=== PATIENT | female | born 2000 | race Caucasian/White ===

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

== ENCOUNTER 2019-09-19 18:11 | Emergency (ER) | payer OTHER ==
[~2019-09-19] VITALS: Ht 154 cm; Wt 71.0 kg
[~2019-09-19 18:11] MED LIST: METH18TA4 PO; METH54TA10; NORE-79
[2019-09-19 18:24] LABS: BILIRUBIN,URINE NEGATIVE (NEGATIVE); CLARITY,URINE CLEAR; COLOR,URINE YELLOW; GLUCOSE, URINE (UA) NEGATIVE (NEGATIVE); KETONES,URINE 1+ (NEGATIVE); LEUKOCYTE ESTERASE ,URINE TRACE (NEGATIVE); NITRITE,URINE NEGATIVE (NEGATIVE); PH,URINE 5.5 (5-9); PROTEIN,URINE NEGATIVE (NEGATIVE)
[2019-09-19 18:35] LABS: BACTERIA,URINE LARGE /HPF
[2019-09-19] MEDS ORDERED: LACTATED RINGERS 1,000 ML IV ONE ×2 (18:49→19:14)
--- NOTE | 2019-09-19 18:58 | ED Fever ---
History of Present Illness General Chief Complaint: Fever-Adult/Adol Stated Complaint: FEVER, ABD,BACK SIDE PAIN Nursing Triage Note: PT PRESENTS TO ED WITH COMPLAINTS OF R RIB CAGE PAIN THAT INCREASES WITH MOVEMENT AND INSPIRATION STARTING TUESDAY. PT ALSO DECREASE IN APPETITE X 2 DAYS AND FEVER. PT REPORTS HER URINE HAS BEEN DARK RECENTLY. PT REPORTS HER PAIN RADIATES DOWN HER R SIDE. Sepsis Screen: No Definite Risk Source: patient Exam Limitations: no limitations History of Present Illness Date Seen by Provider: Sep 19, 2019 Time Seen by Provider: 18:29 Initial Comments Patient presents to ER by private conveyance from family medicine clinic at [facility] chief complaint of pain in her right lateral lower ribs and right costovertebral angle intermittent since Tuesday, 5 days ago. She's also developed fever since Tuesday, 3 days ago. MAXIMUM TEMPERATURE is 103 today. She took Aleve on Tuesday and it made her pain and her fever better. She says the pain is worse with positioning or movement. Taking deep inspirations does make the pain a little worse. She's having no shortness of breath or cough that Tuesday when it was at its worst she said it did hurt a little bit to breathe but improved with the Aleve and pain control. She's had no cough no sick contacts and no travel. She's having no nausea. The pain does not seem to be related to eating. She has no history of abdominal surgeries. No history of sick contacts. Nobody else around her is been sick with nausea vomiting diarrhea. She had a bowel movement was normal, light brown today. She's had less frequent urination that she remarks is darker in color but not painful and has had no discharge. She went to the clinic today and they did a urine dip which did not show evidence for UTI and sent her here as the differential was wide enough to merit further, more detailed workup. The patient had no rash or itching associated with the pain. No history of hepatitis nor IV drug use. She does intermittently use marijuana but does not smoke cigarettes. She does take control and does not take the Cipro tablets so she does not have regular periods. No sore throat but she feels like she has pain in her right armpit along the right lateral border of her breast. She's not noticed any new lumps, bumps or deformities of the breast. No personal or familial history of significant medical disease including blood clots. Allergies and Home Medications Allergies Coded Allergies: No Known Drug Allergies (Unverified , 01/15/17) Home Medications Azithromycin 250 Mg Tablet, 250 MG PO DAILY Prescribed by: PRINCESS CARRERO on 09/19/192011 Cefdinir 300 Mg Capsule, 300 MG PO BID Prescribed by: PRINCESS CARRERO on 09/19/192011 Patient Home Medication List Home Medication List Reviewed: Yes Review of Systems Review of Systems Constitutional: chills; No dizziness; fever, malaise EENTM: No ear discharge, No ear pain Respiratory: No cough, No hemoptysis, No short of breath, No wheezing Cardiovascular: see HPI, chest pain; No edema, No Hx of Intervention, No palpitations Gastrointestinal: No abdominal pain, No melena, No nausea Genitourinary: see HPI, decreased output; No discharge, No dysuria : No (oral contraceptives without placebo for periods) Musculoskeletal: back pain (right middle back at the costovertebral margin); No joint pain, No joint swelling, No muscle pain, No muscle stiffness Psychiatric/Neurological: Denies Headache, Denies Numbness, Denies Paresthesia Hematologic/Lymphatic: Denies Anemia, Denies Blood Clots, Denies Easy Bleeding Past [id number]-[id number] Hx Patient Social History Alcohol Use: Occasionally Uses Recreational Drug Use: Yes Drug of Choice: marijuana Smoking Status: Never a Smoker Recent Foreign Travel: No Contact w/Someone Who Travel: No Recent Infectious Disease Expo: No Recent Hopitalizations: No Physical Abuse: No Sexual Abuse: No Mistreated: No Fear: No Past Medical History Surgeries: No Respiratory: No Cardiac: No Neurological: No Genitourinary: No Gastrointestinal: No Musculoskeletal: No Endocrine: No HEENT: No Cancer: No Integumentary: No Blood Disorders: No Physical Exam Vital Signs - First Documented 09/19/19 18:27 Temp 38.2 Pulse 126 Resp 20 B/P (MAP) 138/101 (113) Pulse Ox 96 Capillary Refill : Less Than 3 Seconds Height: 5'1.00" Weight: 120lbs. oz. [id number]; 29.00 BMI Method:Stated General Appearance: WD/WN, mild distress (rates her pain as a 3 out of 10 at rest) Eyes: Bilateral Eye Normal Inspection, Bilateral Eye PERRL, Bilateral Eye EOMI HEENT: PERRL/EOMI, normal ENT inspection, TMs normal; No pharynx normal (mild erythema in the retropharynx without exudate. Mildly dry oral mucosa.) Neck: full range of motion, normal inspection Respiratory: lungs clear, normal breath sounds, no respiratory distress, no accessory muscle use, other (right axilla and right lateral posterior ribs are mildly tender to palpation but do not re-create full level of her discomfort as opposed to deep inspiration) Cardiovascular: normal peripheral pulses, regular rate, rhythm, no edema, no JVD, tachycardia Gastrointestinal: normal bowel sounds, non tender, soft, hepatomegaly (liver edge percussed approximately 2.5 cm below the level of the rib cage, non-firm with negative Cruz's sign), other (negative for McBurney's point tenderness, psoas sign, Rovsing sign.) Extremities: normal range of motion, non-tender, normal inspection, no pedal edema, no calf tenderness, normal capillary refill Neurologic/Psychiatric: no motor/sensory deficits, alert, normal mood/affect, oriented x 3 Skin: normal color, warm/dry Focused Exam Lactate Level 09/19/19 19:17: Lactic Acid Level 0.67 Lactic Acid Level Laboratory Tests Test 09/19/19 19:17 Lactic Acid Level 0.67 MMOL/L (0.50-2.00) Progress/Results/Core Measures Suspected Sepsis Recent Fever Within 48 Hours: No Infection Criteria Present: None New/Unexplained Altered Menta: No Sepsis Screen: No Definite Risk SIRS Temperature: Pulse: 126 Respiratory Rate: 20 Laboratory Tests 09/19/19 18:55: White Blood Count 18.7H Blood Pressure 138 /101 Mean: 113 09/19/19 19:17: Lactic Acid Level 0.67 Laboratory Tests 09/19/19 18:55: Creatinine 0.79, INR Comment 1.0, Platelet Count 504H, Total Bilirubin 0.9 Results/Orders Lab Results Laboratory Tests Test 09/19/19 18:16 09/19/19 18:45 09/19/19 18:55 09/19/19 19:17 Range/Units Urine Color YELLOW Urine Clarity CLEAR Urine pH 5.5 5-9 Urine Specific [place] <=1.005 1.016-1.022 Urine Protein NEGATIVE NEGATIVE Urine Glucose (UA) NEGATIVE NEGATIVE Urine Ketones 1+ H NEGATIVE Urine Nitrite NEGATIVE NEGATIVE Urine Bilirubin NEGATIVE NEGATIVE Urine Urobilinogen 2.0 < = 1.0 MG/DL Urine Leukocyte Esterase TRACE H NEGATIVE Urine RBC (Auto) 2+ H NEGATIVE Urine RBC 5-10 H /HPF Urine WBC 2-5 /HPF Urine Squamous Epithelial Cells 10-25 H /HPF Urine Crystals NONE /LPF Urine Bacteria LARGE H /HPF Urine Casts NONE /LPF Urine Mucus NEGATIVE /LPF Urine Culture Indicated NO Group A Streptococcus Screen NEGATIVE NEGATIVE White Blood Count 18.7 H 4.3-11.0 10^3/uL Red Blood Count 4.30 L 4.35-5.85 10^6/uL Hemoglobin 12.1 11.5-16.0 G/DL Hematocrit 36 35-52 % Mean Corpuscular Volume 84 80-99 FL Mean Corpuscular Hemoglobin 28 25-34 PG Mean Corpuscular Hemoglobin Concent 34 32-36 G/DL Red Cell Distribution Width 12.5 10.0-14.5 % Platelet Count 504 H 130-400 10^3/uL Mean Platelet Volume 8.6 7.4-10.4 FL Neutrophils (%) (Auto) 80 H 42-75 % Lymphocytes (%) (Auto) 11 L 12-44 % Monocytes (%) (Auto) 9 0-12 % Eosinophils (%) (Auto) 0 0-10 % Basophils (%) (Auto) 0 0-10 % Neutrophils # (Auto) 15.0 H 1.8-7.8 X 10^3 Lymphocytes # (Auto) 2.0 1.0-4.0 X 10^3 Monocytes # (Auto) 1.6 H 0.0-1.0 X 10^3 Eosinophils # (Auto) 0.1 0.0-0.3 10^3/uL Basophils # (Auto) 0.0 0.0-0.1 10^3/uL Neutrophils % (Manual) 76 % Lymphocytes % (Manual) 14 % Monocytes % (Manual) 8 % Band Neutrophils 2 % Blood Morphology Comment NORMAL Erythrocyte Sedimentation Rate 1 0-20 MM/HR Prothrombin Time 14.0 12.2-14.7 SEC INR Comment 1.0 0.8-1.4 Activated Partial Thromboplast Time 29 24-35 SEC D-Dimer 2.49 H 0.00-0.49 UG/ML Sodium Level 133 L 135-145 MMOL/L Potassium Level 3.6 3.6-5.0 MMOL/L Chloride Level 98 98-107 MMOL/L Carbon Dioxide Level 19 L 21-32 MMOL/L Anion Gap 16 H 5-14 MMOL/L Blood Urea Nitrogen 7 7-18 MG/DL Creatinine 0.79 0.60-1.30 MG/DL Estimat Glomerular Filtration Rate > 60 BUN/Creatinine Ratio 9 Glucose Level 94 70-105 MG/DL Calcium Level 9.8 8.5-10.1 MG/DL Corrected Calcium 9.8 8.5-10.1 MG/DL Total Bilirubin 0.9 0.1-1.0 MG/DL Aspartate Amino Transf (AST/SGOT) 65 H 5-34 U/L Alanine Aminotransferase (ALT/SGPT) 99 H 0-55 U/L Alkaline Phosphatase 99 40-136 U/L Troponin I < 0.028 <0.028 NG/ML C-Reactive Protein High Sensitivity 22.55 H 0.00-0.50 MG/DL Total Protein 8.5 H 6.4-8.2 GM/DL Albumin 4.0 3.2-4.5 GM/DL Lipase 19 8-78 U/L Lactic Acid Level 0.67 0.50-2.00 MMOL/L Micro Results Microbiology 09/19/19 Influenza Types A,B Antigen (BELINDA) - Final, Complete My Orders Orders - PRINCESS CARRERO Chest Pa/Lat (2 View) (09/19/19 18:49) Ed Iv/Invasive Line Start (09/19/19 18:49) Lactated Ringers (Lr 1000 Ml Iv Solution (09/19/19 18:49) Ketorolac Injection (Toradol Injection) (09/19/19 19:00) Cbc With Automated Diff (09/19/19 18:49) Comprehensive Metabolic Panel (09/19/19 18:49) Hs C Reactive Protein (09/19/19 18:49) Erythrocyte Sedimentation Rate (09/19/19 18:49) Lipase (09/19/19 18:49) Rapid Strep A Screen (09/19/19 18:49) Fibrin Degradation Products (09/19/19 18:52) Manual Differential (09/19/19 18:55) Ekg Tracing (09/19/19 19:04) Troponin I (09/19/19 19:04) Ct Angio Chest W (09/19/19 19:11) Iohexol Injection (Omnipaque 350 Mg/Ml 1 (09/19/19 19:15) Received Contrast (Hold Metformin- Contr (09/19/19 19:15) Ns (Ivpb) (Sodium Chloride 0.9% Ivpb Bag (09/19/19 19:15) Blood Culture (09/19/19 19:14) Sputum Culture (09/19/19 19:14) Urine Culture (09/19/19 19:14) Ed Iv/Invasive Line Start (09/19/19 19:14) Vital Signs Adult Sepsis Patie Q15M (09/19/19 19:14) O2 (09/19/19 19:14) Remove Rings In Anticipation O (09/19/19 19:14) Lactic Acid Analyzer (09/19/19 19:14) Influenza A And B Antigens (09/19/19 19:14) Lactated Ringers (Lr 1000 Ml Iv Solution (09/19/19 19:14) Ceftriaxone For Iv Use (Rocephin For I (09/19/19 19:15) Azithromycin Injection (Zithromax Inject (09/19/19 19:15) Acetaminophen Tablet (Tylenol Tablet) (09/19/19 19:15) Partial Thromboplastin Time (09/19/19 18:55) Protime With Inr (09/19/19 18:55) Medications Given in ED Current Medications Medications Dose Ordered Sig/Kelley Route Start Time Stop Time Status Last Admin Dose Admin Acetaminophen 1,000 mg ONCE ONCE PO 09/19/19 19:15 09/19/19 19:17 DC 09/19/19 19:25 1,000 MG Azithromycin 500 mg/Sodium Chloride 250 ml @ 250 mls/hr ONCE ONCE IV 09/19/19 19:15 09/19/19 20:14 DC 09/19/19 19:57 250 MLS/HR Ceftriaxone Sodium 1000 mg/ Sterile Water 10 ml @ 200 mls/hr ONCE ONCE IV 09/19/19 19:15 09/19/19 19:17 DC 09/19/19 19:55 200 MLS/HR Iohexol 75 ml ONCE ONCE IV 09/19/19 19:15 09/19/19 19:33 DC 09/19/19 19:39 75 ML Ketorolac Tromethamine 30 mg ONCE ONCE IVP 09/19/19 19:00 09/19/19 19:01 DC 09/19/19 19:15 30 MG Lactated Ringer's 1,000 ml @ 0 mls/hr Q0M ONCE IV 09/19/19 18:49 09/19/19 18:52 DC 09/19/19 19:15 0 MLS/HR Lactated Ringer's 1,000 ml @ 0 mls/hr Q0M ONCE IV 09/19/19 19:14 09/19/19 19:17 DC 09/19/19 20:44 0 MLS/HR Sodium Chloride 100 ml ONCE ONCE IV 09/19/19 19:15 09/19/19 19:33 DC 09/19/19 19:39 100 ML Vital Signs/I&O 09/19/19 09/19/19 18:27 19:25 Temp 38.2 38.2 Pulse 126 Resp 20 B/P (MAP) 138/101 (113) Pulse Ox 96 Capillary Refill : Less Than 3 Seconds Blood Pressure Mean: 113 Progress Note #1: Time: 18:58 Progress Note Most her pain seems to be in her right axilla and lateral posterior ribs worsening on deep inspiration or movement. Pleurisy comes to mind. Possibility the pain could be coming from below the diaphragm as well. She does have a marginally enlarged liver by couple centimeters on physical examination so hepatitis, cholecystitis, appendicitis are all possibilities as well as the usual culprits for . Because she is on control and occasionally smokes the possibility of a pulmonary embolism is there although she has no evidence of a DVT but she is tachycardic with a heart rate in the 1:15 to 125 range without evidence of hypoxia on room air. We will get a d-dimer and isn't able to rule it out and we will obtain CT with angiography of the chest which will also allow us to examine the least portion of the liver. We will get a 2 view chest x-ray. We'll get a lipase and labs including CRP/ESR. If we do not find evidence of above the diaphragm disease and we will get a CT of the abdomen and pelvis with IV contrast to rule out appendicitis, cholecystitis, hepatitis etc. There is a small amount of red blood cells in her urine as well as some squames so could be some breakthrough bleeding versus hemolytic uremic syndrome? The patient Doesn't have any evidence of recent strep but she does have a high fever so we will just do a rapid strep test. 1 L of lactated Ringer's and Toradol for discomfort. Well score: 1.5 points; Low risk group: 1.3% chance of PE in an ED population. PERC Rule 2 criteria; If any criteria are positive, the PERC rule cannot be used to rule out PE in this patient. Intermediate suspicion. D-dimer has been ordered. Less likely a referred pain to her right chest from a myocarditis or peric arditis. Plan to get an EKG and troponin as well. Progress Note #2: Time: 19:17 Progress Note Chest x-ray shows a right lower lobe infiltrate which would be consistent with a pneumonia which would be consistent with her pleuritic chest pain. She is up-to-date on her vaccinations and it seems unusual to see [id number] with a lobar pneumonia like this is ready go ahead and pursue the CT angiogram just to rule out any mass or pulmonary embolism associated with this radiologic feature seen on 2 view chest x-ray. Progress Note #3: Time: 20:07 Progress Note We did discuss the patient's illness and sepsis and offered the patient a chance to stay in the hospital. The patient was quick to decline this offer. She looks well has normal oxygen sats in her heart rate is down to 105 in all of her flui ds or not completed. She still needs to get her azithromycin. We have offered to do an outpatient trial of antibiotics as the patient has not had appropriate outpatient care yet and I agree with her plan to go home. She says her mom is staying in town and will be looking after her. We have given her good return precautions and answered all of her questions. No evidence of other tumor or other disease was found. Plan to put her on Omnicef and azithromycin. We'll also encourage her to follow-up early next week with either the primary care office for the clinic she's been following through [employer] or other local physician. Progress Note #4: Time: 21:51 Progress Note The patient's heart rates in the 90s and she is afebrile. Aseptic vital signs. Plan to allow her to go home. She is in agreement with this. ECG Initial ECG Impression Date: Sep 19, 2019 Initial ECG Impression Time: 19:19 Initial ECG Rate: 105 Initial ECG Rhythm: S.Tach Initial ECG Intervals: Normal Initial ECG Impression: Normal Initial ECG Comparisson: No Previous ECG Available Comment Normal sinus tachycardia without evidence of irritation, dysrhythmia, elevation or depression in the ST segments. Diagnostic Imaging Diagonstic Imaging: Xray Plain Films/CT/US/NM/MRI: chest (2 view) Comments Right middle lobe infiltrate. NAME: RAÚL GARRISON [facility] REC#: [id number] PT STATUS: REG ER : 2000 PHYSICIAN: PRINCESS CARRERO MD ADMIT DATE: 09/19/19/ER Draft Date of Exam:09/19/19 CHEST PA/LAT (2 VIEW) INDICATION: Fever. Chest pain. COMPARISON: None FINDINGS: Frontal and lateral radiographic views of the chest were obtained and show consolidative airspace disease of the lateral margin of the right middle lobe. There is mild asymmetric hypoinflation of the right lung as well. Left lung is clear and well aerated. There is no large effusion or pneumothorax on either side. Cardiac silhouette and pulmonary vasculature within normal limits. Osseous structures show no gross acute abnormalities. IMPRESSION: 1. Right middle lobe pneumonia. Follow-up to resolution is advised. Dictated on workstation # [id number] Dict: 09/19/191924 Trans: 09/19/191931 [facility] [id number] Interpreted by: TERRY UMANZOR MD Electronically signed by: Reviewed: Reviewed by Ia Diagonstic Imaging: CT (angiogram) Plain Films/CT/US/NM/MRI: chest Comments [facility] [place] NAME: RAÚL GARRISON [facility] REC#: [id number] PT STATUS: REG ER : 2000 PHYSICIAN: PRINCESS CARRERO MD ADMIT DATE: 09/19/19/ER Draft Date of Exam:09/19/19 CT ANGIO CHEST W PROCEDURE: CT angiography of the chest with contrast. TECHNIQUE: Multiple contiguous axial images were obtained through the chest after uneventful bolus administration of intravenous contrast. 3D reconstructed CTA MIP acquisitions were also performed. Auto Exposure Controls were utilized during the CT exam to meet ALARA standards for radiation dose reduction. INDICATION: Fever. Right-sided chest pain and tenderness. COMPARISON: None FINDINGS: There is no acute embolus to the 1st subsegmental division of the pulmonary arteries. Heart size is within normal limits. There is no large pericardial effusion. Several mildly prominent right perihilar lymph nodes are identified. Reference lymph node measures 1.9 x 1.6 cm. No abnormal mediastinal, left hilar, nor bilateral axillary adenopathy is seen. Evaluation of the lung andrew is mildly degraded secondary to motion artifact. There is, however, moderate sized area of dense consolidation involving the lateral segment of the right middle lobe. This corresponds to findings seen on chest radiograph from earlier same day. Few patchy alveolar infiltrates are also noted within the right lower lobe. Additionally, there is trace effusion on the right. Left lung is relatively clear. There is no large effusion on the left. No pneumothorax is seen on either side. Osseous structures show no acute abnormalities. No lytic or blastic bony lesions are seen. Included portions of the upper abdomen are unremarkable. IMPRESSION: 1. No acute pulmonary embolus. 2. Right middle and lower lobe infiltrates. 3. Small right effusion. 4. Mildly prominent right hilar adenopathy; likely reactive. Dictated on workstation # [id number] Dict: 09/19/191942 Trans: 09/19/191948 [facility] [phone] Interpreted by: TERRY UMANZOR MD Electronically signed by: Reviewed: Reviewed by Me Departure Impression Primary Impression: Right middle lobe pneumonia Qualified Codes: J18.1 - Lobar pneumonia, unspecified organism Additional Impressions: Sepsis Qualified Codes: A41.9 - Sepsis, unspecified organism Pleurisy with effusion, with bacterial cause Disposition: 01 HOME, SELF-CARE Condition: Improved Departure-Patient Inst. Decision time for Depature: 20:10 Referrals: [facility] (PCP) Primary Care Physician Patient Instructions: Pleuritic Chest Pain, Pneumonia, Adult (DC) Add. Discharge Instructions: Tomorrow please call this [facility] and request follow-up appointment Tuesday with Dr. Patton. Return to the ER promptly if you begin to experience intractable pain, shortness of breath or other worrisome symptoms. 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 Azithromycin 1 tablet daily for the next 4 days. Omnicef one capsule twice a day for the next 2 weeks. Drink lots of fluids and get plenty of rest. Stay active around the house however. Tylenol/acetaminophen 1000 mg every 8 hours as needed for chest pain or fever. Aleve/naproxen 2 tablets twice daily as needed for chest pain or fever. Alternatively you may use ibuprofen/Motrin 800 mg every 8 hours as needed for chest pain or fever. All discharge instructions reviewed with patient and/or family. Voiced understanding. Scripts Azithromycin (Azithromycin) 250 Mg Tablet 250 MG PO DAILY, #4 TAB 0 Refills Prov: PRINCESS CARRERO 09/19/19 Cefdinir (Cefdinir) 300 Mg Capsule 300 MG PO BID for 14 Days, #28 CAP 0 Refills Prov: PRINCESS CARRERO 09/19/19 Work/School Note: Work Release Form Date Seen in the Emergency Department: Sep 19, 2019 Return to Work: September 25, 2019 Restrictions: No Restrictions Copy Copies To 1: PURA PATTON MD, TITUS J Sep 19, 2019 18:58
[2019-09-19] MEDS ORDERED: KETOROLAC 30 MG/ML VIAL IVP ONE (19:00)
[2019-09-19 19:03] LABS: BASOPHILS % (AUTO) 0 % (0-10); EOSINOPHILS # (AUTO) 0.1 10^3/uL (0.0-0.3); EOSINOPHILS % (AUTO) 0 % (0-10); HEMATOCRIT 36 % (35-52); HEMOGLOBIN 12.1 G/DL (11.5-16.0); LYMPHOCYTES % (AUTO) 11 % (12-44); MEAN CORPUSCULAR HEMOGLOBIN 28 PG (25-34); MEAN CORPUSCULAR HGB CONC 34 G/DL (32-36); MEAN CORPUSCULAR VOLUME 84 FL (80-99); MEAN PLATELET VOLUME 8.6 FL (7.4-10.4); MONOCYTES # (AUTO) 1.6 X 10^3 (0.0-1.0); MONOCYTES % (AUTO) 9 % (0-12); NEUTROPHILS % (AUTO) 80 % (42-75); PLATELET COUNT 504 10^3/uL (130-400); RED CELL DISTRIBUTION WIDTH 12.5 % (10.0-14.5); WHITE BLOOD COUNT 18.7 10^3/uL (4.3-11.0)
[2019-09-19] MEDS ORDERED: cefTRIAXone FOR IV USE 1,000 MG in WATER (STERILE) FOR INJECTION 10 ML IV ONE (19:15)
[2019-09-19] MEDS ORDERED: HOLD METFORMIN - RECEIVED CONTRAST 20 ML VIAL IV SCH (19:15)
[2019-09-19] MEDS ORDERED: IOHEXOL 350 MG/ML 100 ML (OMNIPAQUE 350) VIAL IV ONE (19:15)
[2019-09-19] MEDS ORDERED: NS 100 ML (IVPB) BAG IV ONE (19:15)
[2019-09-19] MEDS ORDERED: ACETAMINOPHEN 500 MG TAB (TYLENOL) PO ONE (19:15)
[2019-09-19] MEDS ORDERED: AZITHROMYCIN INJECTION 500 MG in NS (IVPB) 250 ML IV ONE (19:15)
[2019-09-19 19:28] LABS: ALANINE AMINOTRANSFERASE 99 U/L (0-55); ALKALINE PHOSPHATASE 99 U/L (40-136); BILIRUBIN,TOTAL 0.9 MG/DL (0.1-1.0); BUN/CREATININE RATIO 9; CALCIUM 9.8 MG/DL (8.5-10.1); CARBON DIOXIDE 19 MMOL/L (21-32); CHLORIDE 98 MMOL/L (98-107); CREATININE SERUM 0.79 MG/DL (0.60-1.30); GFR ESTIMATED > 60; GLUCOSE 94 MG/DL (70-105); LIPASE 19 U/L (8-78); POTASSIUM 3.6 MMOL/L (3.6-5.0); SODIUM 133 MMOL/L (135-145); TOTAL PROTEIN 8.5 GM/DL (6.4-8.2)
--- NOTE | 2019-09-19 19:32 | Diagnostic Imaging Report ---
INDICATION: Fever. Chest pain. COMPARISON: None FINDINGS: Frontal and lateral radiographic views of the chest were obtained and show consolidative airspace disease of the lateral margin of the right middle lobe. There is mild asymmetric hypoinflation of the right lung as well. Left lung is clear and well aerated. There is no large effusion or pneumothorax on either side. Cardiac silhouette and pulmonary vasculature within normal limits. Osseous structures show no gross acute abnormalities. IMPRESSION: 1. Right middle lobe pneumonia. Follow-up to resolution is advised. Dictated by: Dictated on workstation # [id number]
[2019-09-19 19:42] LABS: FIBRIN DEGRADATION PRODUCTS 2.49 UG/ML (0.00-0.49)
--- NOTE | 2019-09-19 19:51 | Diagnostic Imaging Report ---
PROCEDURE: CT angiography of the chest with contrast. TECHNIQUE: Multiple contiguous axial images were obtained through the chest after uneventful bolus administration of intravenous contrast. 3D reconstructed CTA MIP acquisitions were also performed. Auto Exposure Controls were utilized during the CT exam to meet ALARA standards for radiation dose reduction. INDICATION: Fever. Right-sided chest pain and tenderness. COMPARISON: None FINDINGS: There is no acute embolus to the 1st subsegmental division of the pulmonary arteries. Heart size is within normal limits. There is no large pericardial effusion. Several mildly prominent right perihilar lymph nodes are identified. Reference lymph node measures 1.9 x 1.6 cm. No abnormal mediastinal, left hilar, nor bilateral axillary adenopathy is seen. Evaluation of the lung andrew is mildly degraded secondary to motion artifact. There is, however, moderate sized area of dense consolidation involving the lateral segment of the right middle lobe. This corresponds to findings seen on chest radiograph from earlier same day. Few patchy alveolar infiltrates are also noted within the right lower lobe. Additionally, there is trace effusion on the right. Left lung is relatively clear. There is no large effusion on the left. No pneumothorax is seen on either side. Osseous structures show no acute abnormalities. No lytic or blastic bony lesions are seen. Included portions of the upper abdomen are unremarkable. IMPRESSION: 1. No acute pulmonary embolus. 2. Right middle and lower lobe infiltrates. 3. Small right effusion. 4. Mildly prominent right hilar adenopathy; likely reactive. Dictated by: Dictated on workstation # [id number]
--- OUTSIDE RECORDS SUMMARY | 2019-09-19 20:08 | XMS REPORT | Clinical Summary ---
Author Author [facility] Organization [facility] Address [address] [address] Phone Care Team Providers Care Green Prize Packer Name Role Phone EMILY LUNDBERG, JOHN PCP Conditions or Problems Problem Name Problem Code Onset Date Status Entry Date Provider Comment Standard Description Annotate WARTS 260095936 (SNOMED CT) Inactive JOHN GRIMES MD Human papilloma virus infection WELL CHILD EXAMINATION 656018337 (SNOMED CT) Active 20 02/21/03 JOHN DIAZ MD Well child visit WARTS 932670878 (SNOMED CT) Inactive JOHN GRIMES MD Human papilloma virus infection ATTENTION DEFICIT DISORDER WITH HYPERACTIVITY 314.01 (ICD-9-CM) Active JOELLE FOLEY LPN 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 GENERIC IS OK. May use brand name Concerta if preferential on insurance formulary. METHYLPHENIDATE HCL 40906600052 JOHN VILLEGAS MD CONCERTA 27 MG CR-TABS Take 1 tablet in the morning for . GENERIC IS OK. May use brand name Concerta if preferential on insurance formulary. METHYLPHENIDATE HCL 20479716731 JOHN VILLEGAS MD CONCERTA 36 MG CR-TABS Take 1 tablet in the morning for . GENERIC IS OK. May use brand name Concerta if preferential on insurance formulary. DO NOT FILL BEFORE METHYLPHENIDATE HCL [id number] JOHN DIAZ MD CONCERTA 36 MG CR-TABS Take 1 tablet in the morning for . GENERIC IS OK. May use brand name Concerta if preferential on insurance formulary. DO NOT FILL BEFORE METHYLPHENIDAT E HCL [id number] JOHN DIAZ MD CONCERTA 36 MG CR-TABS Take 1 tablet in the morning for . GENERIC IS OK. May use brand name Concerta if preferential on insurance formulary. METHYLPHENIDATE HCL 13913166244 JOHN VILLEGAS MD CONCERTA 36 MG CR-TABS Take 1 tablet in the morning for . GENERIC IS OK. May use brand name Concerta if preferential on insurance formulary. DO NOT FILL BEFORE METHYLPHENIDATE HCL 5 [id number] JOHN DIAZ MD CONCERTA 36 MG CR-TABS Take 1 tablet in the morning for . GENERIC IS OK. May use brand name Concerta if preferential on insurance formulary. DO NOT FILL BEFORE METHYLPHENIDATE HCL [id number] JOHN DIAZ MD CONCERTA 36 MG CR-TABS Take 1 tablet in the morning for . GENERIC IS OK. May use brand name Concerta if preferential on insurance formulary. Do Not Fill Before METHYLPHENIDATE HCL [id number] JOHN DIAZ MD CONCERTA 36 MG CR-TABS Take 1 tablet in the morning for . GENERIC IS OK. May use brand name Concerta if preferential on insurance formulary. Do Not Fill Before METHYLPHENIDATE HCL 5 [id number] JOHN DIAZ MD CONCERTA 18 MG CR-TABS Take 2 tablets in the mornin g for . GENERIC IS OK. May use brand name Concerta if preferential on insurance formulary. METHYLPHENIDATE HCL [id number] JOHN VILLEGAS MD CONCERTA 36 MG CR-TABS Take 1 tablet in the morning for . GENERIC IS OK. May use brand name Concerta if preferential on insurance formulary. METHYLPHENIDATE HCL [id number] JOHN VILLEGAS MD CONCERTA 18 MG CR-TABS Take 2 tablets in the mornin g for . GENERIC IS OK. May use brand name Concerta if preferential on insurance formulary. METHYLPHENIDATE HCL [id number] JOHN VILLEGAS MD CONCERTA 36 MG CR-TABS Take 1 tablet in the morning for . GENERIC IS OK. May use brand name Concerta if preferential on insurance formulary. Do not fill before METHYLPHENIDATE HCL [id number] JOHN MONTES MD CONCERTA 36 MG CR-TABS Take 1 tablet in the morning for . GENERIC IS OK. May use brand name Concerta if preferential on insurance formulary. Do not fill before METHYLPHENIDATE HCL [id number] JOHN MONTES MD CONCERTA 36 MG CR-TABS Take 1 tablet in the morning for . GENERIC IS OK. May use brand name Concerta if preferential on insurance formulary. METHYLPHENIDATE HCL [id number] JOHN VILLEGAS MD CONCERTA 36 MG CR-TABS Take 1 tablet in the morning for Do not fill before 05/18/10 METHYLPHENIDATE HCL [id number] JOHN DIAZ MD CONCERTA 36 MG CR-TABS Take 1 tablet in the morning for _ METHYLPHENIDATE HCL [id number] JOHN DIAZ MD CONCERTA 36 MG CR-TABS Take 1 tablet in the morning for Do not fill before 06/18/10 METHYLPHENIDATE HCL [id number] Ryan Larson PA-C CONCERTA 36 MG CR-TABS Take 1 tablet in the morning for Do not fill before 05/18/10 METHYLPHENIDATE HCL [id number] JOHN DIAZ MD CONCERTA 54 MG CR-TABS Do NOT fill before October 27 010 Take 1 tablet in the morning for METHYLPHENIDATE HCL [id number] Cheyenne Steven RN CONCERTA 36 MG CR-TABS Take 1 tablet in the morning for Do not fill before 03-18-10 METHYLPHENIDATE HCL [id number] JOHN DIAZ MD CONCERTA 36 MG CR-TABS Take 1 tablet in the morning for Do not fill before 02-16-10 METHYLPHENIDATE HCL [id number] JOHN DIAZ MD CONCERTA 36 MG CR-TABS Take 1 tablet in the morning for _ METHYLPHENIDATE HCL [id number] JOHN DIAZ MD CONCERTA 54 MG CR-TABS Do NOT fill before September 26 10 Take 1 tablet in the morning for METHYLPHENIDATE HCL [id number] JOHN DIAZ MD CONCERTA 54 MG CR-TABS Take 1 tablet qAM for METHYLPHENIDATE HCL [id number] JOHN DIAZ MD PEDIOTIC 3.5-72005-3 SUSP Instill 2 to 4 drops in affected e ar qid for 5 days. [id number] Tatiana Chaudhary RN CONCERTA 54 MG CR-TABS Do NOT fill before October 27 010 Take 1 tablet in the morning for METHYLPHENIDATE HCL [id number] JOHN DIAZ MD CONCERTA 54 MG CR-TABS Do NOT fill before September 26 10 Take 1 tablet in the morning for METHYLPHENIDATE HCL [id number] JOHN DIAZ MD CONCERTA 54 MG CR-TABS Take 1 tablet in the morning for _ METHYLPHENIDATE HCL [id number] JOHN DIAZ MD CONCERTA 54 MG CR-TABS Take 1 tablet in the morning for _ METHYLPHENIDATE HCL [id number] JOHN DIAZ MD CONCERTA 54 MG CR-TABS Take 1 tablet qAM for METHYLPHENIDATE HCL [id number] JOHN DIAZ MD CONCERTA 54 MG CR-TABS Take 1 tablet qAM for METHYLPHENIDATE HCL [id number] JOHN DIAZ MD CONCERTA 54 MG CR-TABS Take 1 tablet qAM for METHYLPHENIDATE HCL [id number] VANESSA CHINCHILLA MD AEROCHAMBER Z-STAT PLUS/MEDIUM use with inhaler 06/24 RESPIRATORY THERAPY SUPPLIES [id number] DARON ALVAREZ MD PROVENTIL HFA AERS Use 2 puffs q 4 hr prn ALBUTEROL SULFATE AERS [id number] DARON ALVAREZ MD PEDIOTIC 3.5-36676-4 SUSP Instill 2 to 4 drops in affected e ar qid for 5 days. ARXKOIQS-[id number]-YG [id number] DARON GIRALDO MD ZITHROMAX Z-MARYCHUY 250 MG TABS Take TWO tablets first day , then ONE tablet daily for 4 days. AZITHROMYCIN [id number] DARON ALVAREZ MD XOPENEX 0.63 MG/3ML NEBU Use 1 vial TID with pulmoaide LEVALBUTEROL HCL [id number] BENY HARRIS MD ZITHROMAX 200 MG/5ML SUSR Take 2 tsp po day 1, 1 tsp.po day 2-5 AZITHROMYCIN [id number] BENY HARRIS MD Medications Administered No information available. Allergies, Adverse Reactions, Alerts Observed no known allergies at Results No information available. Plan of Care Type Date Detail Pending order TdaP Pending order Administration INITI AL Vaccine Pending order Varivax Pending order Administration INITI AL Vaccine Pending order Varivax Pending order Administration INITI AL Vaccine Procedures Code Procedure Name Date Entry Date CPT-58045 Warts Destruction up to 14 06/25 CPT-12916 TdaP CPT-61148 Administration INITIAL Vaccine 2 CPT-93116 Warts Destruction up to 14 11/11 CPT-87432 Administration INITIAL Vaccine 2 CPT-35342 Varivax CPT-03805 Varivax CPT-64557 Administration INITIAL Vaccine 2 Vital Signs Date Name Value Unit Description BMI (Body Mass Index) 21.89 kg/m2 Body M ass Index [Ratio] BP Diastolic 70 mm[Hg] blood pressure, diastolic BP Systolic 124 mm[Hg] blood pressure, systolic Height 59 [in_us] height E&M Height 149.86 cm height in centi meters E&M Weight Measured 108 [lb_av] weight E&M Weight Measured 49.09 kg weight in ki lograms E&M Heart Rate 88 /min pulse rate E&M
--- OUTSIDE RECORDS SUMMARY | 2019-09-19 20:09 | XMS REPORT | Continuity of Care Document ---
Author Organization Unknown Address Unknown Phone Unavailable Allergies Active Description Code Type Severity Reaction Onset Reported/Identified Relationship to Patient Clinical Status Yes NKA Drug N/A N/A Yes No Known Drug Allergies [id number] Drug Allergy Unknown N/A 01/15/2017 Medications Medication Packaging Start Date St op Date Route Dosage Sig cephalexin 04/1104/21/2018 PO 500 mg / 1 cap Problems Date Dx Coded Attending Type Code Diagnosis Diagnosed By 01/15/2017 GABBIE JEWELL APRN Ot M25.572 PAIN IN LEFT ANKLE AND JOINTS OF LEFT FO 01/15/2017 GABBIE JEWELL APRN Ot S93.402A SPRAIN OF UNSPECIFIED LIGAMENT OF LEFT A 01/15/2017 GABBIE JEWELL APRN Ot X50.1XXA OVEREXERTION FROM PROLONGED STATIC OR AW 01/17/2017 GABBIE JEWELL APRN Ot M25.572 PAIN IN LEFT ANKLE AND JOINTS OF LEFT FO 01/17/2017 GABBIE JEWELL APRN Ot S93.402A SPRAIN OF UNSPECIFIED LIGAMENT OF LEFT A 01/17/2017 GABBIE JEWELL APRN Ot X50.1XXA OVEREXERTION FROM PROLONGED STATIC OR AW 04/12/2018 Nilson Aiken Admitting M79.642 Pain in left hand 04/12/2018 Nilson Aiken Final S61.412 A Laceration without foreign body of left hand, initial encoun 04/12/2018 Nilson Aiken Final W22.8XX A Striking against or struck by other objects, initial encount 04/12/2018 Nilson Aiken Final W25.XXX A Contact with sharp glass, initial encounter 04/12/2018 Nilson Aiken Final Y92.[address] in unspecified non-institutional (private) Procedures Code Description [place] [address] [facility] FABIAN FELDER 04/11/2018 [address] Located within [facility] department visit for the evalu FABIAN FELDER 04/11/2018 Results Test Result Range Complete urinalysis with reflex to cultu re - 09/19/19 18:16 Urine color determination YELLOW NRG Urine clarity determination CLEAR NR G Urine pH measurement by test strip 5.5 5-9 Specific gravity of urine by test strip <= 1.016-1.022 Urine protein assay by test strip, semi-quantitative NEGATIVE NEGATIVE Urine glucose detection by automated test strip NE GATIVE NEGATIVE Erythrocytes detection in urine sediment by light micr oscopy 2+ NEGATIVE Urine ketones detection by automated test strip 1+ NEGATIVE Urine nitrite detection by test strip NEGATIVE NEGATIVE Urine total bilirubin detection by test strip NEGA TIVE NEGATIVE Urine urobilinogen measurement by automated test strip (mass/volume) 2.0 mg/dL < = 1.0 Urine leukocyte esterase detection by dipstick TRA CE NEGATIVE Automated urine sediment erythrocyte cou nt by microscopy (number/high power field) [HPF] NRG Automated urine sediment leukocyte count by microscopy (number/high power field) [HPF] NRG Bacteria detection in urine sediment by light microsco py LARGE NRG Squamous epithelial cells detection in u rine sediment by light microscopy 10-25 NRG Crystals detection in urine sediment by light microsco py NONE NRG Casts detection in urine sediment by light microscopy NONE NRG Mucus detection in urine sediment by light microscopy NEGATIVE NRG Complete urinalysis with reflex to culture NO NRG Streptococcus pyogenes antigen detection - 09/19/19 18:45 Streptococcus pyogenes antigen detection NEGATIVE NEGATIVE Complete blood count (CBC) with automate d white blood cell (WBC) differential - 09/19/19 18:55 Blood leukocytes automated count (number/volume) 18.7 10*3/uL 4.3-11.0 Blood erythrocytes automated count (number/volume) 4.30 10*6/uL 4.35-5.85 Venous blood hemoglobin measurement (mass/volume) 12.1 g/dL 11.5-16.0 Blood hematocrit (volume fraction) 36 % 35-52 Automated erythrocyte mean corpuscular volume 84 [ foz_us] 80-99 Automated erythrocyte mean corpuscular h emoglobin (mass per erythrocyte) 28 pg 25-34 Automated erythrocyte mean corpuscular h emoglobin concentration measurement (mass/volume) 34 g/dL 32-36 Automated erythrocyte distribution width ratio 12. 5 % 10.0- 14.5 Automated blood platelet count (count/volume) 504 10*3/uL 130-400 Automated blood platelet mean volume measurement 8.6 [foz_us] 7.4-10.4 Automated blood neutrophils/100 leukocytes 80 % 42-75 Automated blood lymphocytes/100 leukocytes 11 % 12-44 Blood monocytes/100 leukocytes 9 % 0-12 Automated blood eosinophils/100 leukocytes 0 % 0-10 Automated blood basophils/100 leukocytes 0 % 0-10 Blood neutrophils automated count (number/volume) 15.0 10*3 1.8-7.8 Blood lymphocytes automated count (number/volume) 2.0 10*3 1.0-4.0 Blood monocytes automated count (number/volume) 1. 6 10*3 0.0-1.0 Automated eosinophil count 0.1 10*3/uL 0 .0-0.3 Automated blood basophil count (count/volume) 0.0 10*3/uL 0.0-0.1 Comprehensive metabolic panel - 09/19/19 18:55 Serum or plasma sodium measurement (moles/volume) 133 mmol/L 135-145 Serum or plasma potassium measurement (moles/volume) 3.6 mmol/L 3.6-5.0 Serum or plasma chloride measurement (moles/volume) 98 mmol/L 98-107 Carbon dioxide 19 mmol/L 21-32 Serum or plasma anion gap determination (moles/volume) 16 mmol/L 5-14 Serum or plasma urea nitrogen measurement (mass/volume ) 7 mg/dL 7-18 Serum or plasma creatinine measurement (mass/volume) 0.79 mg/dL 0.60-1.30 Serum or plasma urea nitrogen/creatinine mass ratio 9 NRG Serum or plasma creatinine measurement w ith calculation of estimated glomerular filtration rate > NRG Serum or plasma glucose measurement (mass/volume) 94 mg/dL 70-105 Serum or plasma calcium measurement (mass/volume) 9.8 mg/dL 8.5-10.1 Serum or plasma total bilirubin measurement (mass/volu me) 0.9 mg/dL 0.1-1.0 Serum or plasma alkaline phosphatase ugo surement (enzymatic activity/volume) 99 U/L 40-136 Serum or plasma aspartate aminotransfera se measurement (enzymatic activity/volume) 65 U/L 5-34 Serum or plasma alanine aminotransferase measurement (enzymatic activity/volume) 99 U/L 0-55 Serum or plasma protein measurement (mass/volume) 8.5 g/dL 6.4-8.2 Serum or plasma albumin measurement (mass/volume) 4.0 g/dL 3.2-4.5 CALCIUM CORRECTED 9.8 mg/dL 8.5-10.1 Lipase - 09/19/19 18:55 Lipase 19 U/L 8-78 Serum or plasma troponin i.cardiac measu rement (mass/volume) - 09/19/19 18:55 Serum or plasma troponin i.cardiac measurement (mass/v olume) < ng/mL <0.028 Serum or plasma C reactive protein measu rement (mass/volume) - 09/19/19 18:55 Serum or plasma C reactive protein measurement (mass/v olume) 22.55 mg/dL 0.00-0.50 Encounters ACCT No. Visit Date/Time Discharge Status Pt. Type Provider Facility Loc./Unit Complaint [id number] 04/11/2018 21:34:00 8 00:32:00 DIS Emergency Nilson Aiken [facility] ER Foreign Body [id number] 01/15/2017 13:55:00 017 15:10:00 DIS Emergency GABBIE JEWELL APRN [facility] ER L ANKLE PAIN [id number] 09/19/2019 18:12:[address] Emergency MAGAN LUNDBERG, PRINCESS Alberto [facility] ER FEVER, ABD,BACK SIDE PAIN
[2019-09-19] MEDS ORDERED: AZIT250T12 PO ×2 (20:12→21:51)
[2019-09-19] MEDS ORDERED: CEFD300C3 PO ×2 (20:12→21:51)
[2019-09-19 20:26] LABS: BAND NEUTROPHILS 2 %; LYMPHOCYTES % (MANUAL) 14 %; MONOCYTES % (MANUAL) 8 %; NEUTROPHILS % (MANUAL) 76 %
[2019-09-19 20:27] LABS: ERYTHROCYTE SEDIMENTATION RATE 1 MM/HR (0-20); RBC MORPH NORMAL
[2019-09-19 21:50] VITALS: BP 114/76
== END 2019-09-19 21:50 | disposition home or self-care (01) ==
LOC: EDUNIT# 18:11 → ER 18:12
DX: A41.9 Sepsis, unspecified organism (principal); J18.1 Lobar pneumonia, unspecified organism; R09.1 Pleurisy
CPT/HCPCS: 36415; 71046; 71275; 80053; 81000; 83605; 83690; 84484; 84703; 85007; 85027; 85379; 85610; 85652; 85730; 86141; 87040; 87088; 87430; 87804; 93005